=== PATIENT | female | born 1935 | race Caucasian/White ===

== ENCOUNTER 2021-07-21 10:08 | Inpatient (IN) | payer MEDICARE, OTHER ==
[2021-07-21 14:36] VITALS: BMI 24.1
[2021-07-21] MEDS ORDERED: Acetaminophen 500 MG TAB PO PRN (15:17)
[2021-07-21] MEDS ORDERED: Morphine 2 MG/ML VIAL SLOW IVP PRN (15:43)
[2021-07-21 18:45] LABS: Troponin I 0.042 ng/mL (< 0.028)
[2021-07-21] MEDS ORDERED: Melatonin 3 MG TAB PO PRN (20:30)
[2021-07-21 21:19] LABS: Lactic Acid 2.2 mmol/L (0.5-2.2)
[2021-07-22 04:52] LABS: Lactic Acid 1.4 mmol/L (0.5-2.2)
[2021-07-22 05:06] LABS: ALT (SGPT) 179 U/L (8-55); AST (SGOT) 148 U/L (5-34); Albumin 2.8 g/dL (3.4-4.8); Alkaline Phosphatase 122 U/L (40-110); Anion Gap 12 mmol/L (10-20); BUN (Urea Nitrogen) 42 mg/dL (9.8-20.1); Bilirubin, Total 0.5 mg/dL (0.2-1.2); Calc. Creatinine Clearance 20 mL/min (70-130); Calcium 7.5 mg/dL (7.8-10.44); Carbon Dioxide 19 mmol/L (23-31); Chloride 110 mmol/L (98-107); Globulin 2.2 g/dL (2.4-3.5); Glucose 77 mg/dL (83-110); Magnesium 1.7 mg/dL (1.6-2.6); Sodium 137 mmol/L (136-145)
[2021-07-22 05:41] LABS: Hemoglobin 8.5 g/dL (12.0-16.0); MDiff Complete? YES; Mean Corpuscular HGB CONC 31.1 g/dL (32.0-36.0); Mean Corpuscular Hemoglobin 27.9 pg (27.0-31.0); Mean Corpuscular Volume 89.8 fL (78.0-98.0); Mean Platelet Volume 7.6 fL (7.4-10.4); Platelet Count 149 thou/uL (130-400); Red Blood Cell (RBC) Count 3.03 mill/uL (4.20-5.40); White Blood Cell (WBC) Count 26.4 thou/uL (4.8-10.8)
[2021-07-22 05:42] LABS: Band 46 % (5-11); Lymphocytes 3 % (21-51); Monocytes 6 % (0-10); Neutrophil 45 % (42-75); Platelet Morphology Comment Appears Adequate; RBC Morphology Normal
[2021-07-22] MEDS: Levothyroxine Sodium 100 MCG TAB PO SCH (06:40)
[2021-07-22] MEDS ORDERED: Potassium Chloride 20 MEQ TAB PO SCH (08:00)
[2021-07-22] MEDS: cefTRIAXone\\ROCEPHIN 1 GM in Sodium Chloride 0.9% 100 ML IVPB SCH (09:07)
[2021-07-22] MEDS: Aspirin 81 mg Enteric Coated Tablet PO SCH (09:08)
[2021-07-22] MEDS: Losartan 25 MG TAB PO SCH (09:09)
[2021-07-22] MEDS: Ferrous Sulfate 325 MG TAB PO SCH (09:09)
[2021-07-22] MEDS: Enoxaparin Sodium 30 MG/0.3 ML SYRINGE SC SCH (09:09)
[2021-07-22] MEDS: Cholecalciferol 1,000 UNITS (25 MCG) TAB PO SCH (09:09)
[2021-07-22] MEDS: Amlodipine 10 MG TAB PO SCH (09:21)
[2021-07-23 05:32] LABS: Band 15 % (5-11); Eosinophils 2 % (0-10); Hemoglobin 8.2 g/dL (12.0-16.0); Lymphocytes 5 % (21-51); MDiff Complete? YES; Mean Corpuscular HGB CONC 31.8 g/dL (32.0-36.0); Mean Corpuscular Hemoglobin 28.4 pg (27.0-31.0); Mean Corpuscular Volume 89.4 fL (78.0-98.0); Metamyelocyte 1 % (0-0); Monocytes 1 % (0-10); Neutrophil 76 % (42-75); Platelet Count 140 thou/uL (130-400); Platelet Morphology Comment Appears Adequate; RBC Morphology Normal; Red Blood Cell (RBC) Count 2.88 mill/uL (4.20-5.40); White Blood Cell (WBC) Count 24.4 thou/uL (4.8-10.8)
[2021-07-23 05:42] LABS: ALT (SGPT) 108 U/L (8-55); AST (SGOT) 45 U/L (5-34); Albumin 2.8 g/dL (3.4-4.8); Alkaline Phosphatase 121 U/L (40-110); Anion Gap 12 mmol/L (10-20); BUN (Urea Nitrogen) 41 mg/dL (9.8-20.1); Bilirubin, Total 0.5 mg/dL (0.2-1.2); Calc. Creatinine Clearance 27 mL/min (70-130); Calcium 7.9 mg/dL (7.8-10.44); Carbon Dioxide 19 mmol/L (23-31); Chloride 112 mmol/L (98-107); Globulin 2.3 g/dL (2.4-3.5); Glucose 74 mg/dL (83-110); Potassium 3.5 mmol/L (3.5-5.1); Protein, Total 5.1 g/dL (5.8-8.1); Sodium 139 mmol/L (136-145)
[2021-07-23] MEDS: Levothyroxine Sodium 100 MCG TAB PO SCH (06:25)
[2021-07-23] MEDS: Ferrous Sulfate 325 MG TAB PO SCH (09:02)
[2021-07-23] MEDS: Amlodipine 10 MG TAB PO SCH (09:02)
[2021-07-23] MEDS: Aspirin 81 mg Enteric Coated Tablet PO SCH (09:02)
[2021-07-23] MEDS: Cholecalciferol 1,000 UNITS (25 MCG) TAB PO SCH (09:02)
[2021-07-23] MEDS: Enoxaparin Sodium 30 MG/0.3 ML SYRINGE SC SCH (09:03)
[2021-07-23] MEDS: Losartan 25 MG TAB PO SCH (09:03)
[2021-07-23] MEDS: cefTRIAXone\\ROCEPHIN 1 GM in Sodium Chloride 0.9% 100 ML IVPB SCH (12:47)
[2021-07-24] MEDS ORDERED: hydrALAZINE 20 MG/ML VIAL SLOW IVP PRN ×2 (00:09→09:05)
[2021-07-24] MEDS: Levothyroxine Sodium 100 MCG TAB PO SCH (06:27)
[2021-07-24] MEDS: cefTRIAXone\\ROCEPHIN 1 GM in Sodium Chloride 0.9% 100 ML IVPB SCH (08:59)
[2021-07-24] MEDS: Cholecalciferol 1,000 UNITS (25 MCG) TAB PO SCH (09:00)
[2021-07-24] MEDS: Aspirin 81 mg Enteric Coated Tablet PO SCH (09:00)
[2021-07-24] MEDS: Ferrous Sulfate 325 MG TAB PO SCH (09:00)
[2021-07-24] MEDS: Amlodipine 10 MG TAB PO SCH (09:00)
[2021-07-24] MEDS ORDERED: Hydrochlorothiazide 25 MG TAB PO SCH (09:00)
[2021-07-24] MEDS: Losartan 25 MG TAB PO SCH (09:01)
[2021-07-24 10:19] LABS: Hemoglobin 9.8 g/dL (12.0-16.0); Mean Corpuscular HGB CONC 30.7 g/dL (32.0-36.0); Mean Corpuscular Hemoglobin 27.4 pg (27.0-31.0); Mean Corpuscular Volume 89.3 fL (78.0-98.0); Platelet Count 177 thou/uL (130-400); RBC Distribution Width 13.7 % (11.5-14.5); Red Blood Cell (RBC) Count 3.57 mill/uL (4.20-5.40)
[2021-07-24] MEDS ORDERED: Losartan 25 MG TAB PO SCH (10:30)
[2021-07-24 10:36] LABS: ALT (SGPT) 73 U/L (8-55); AST (SGOT) 19 U/L (5-34); Albumin 3.3 g/dL (3.4-4.8); Alkaline Phosphatase 184 U/L (40-110); Anion Gap 15 mmol/L (10-20); BUN (Urea Nitrogen) 29 mg/dL (9.8-20.1); Bilirubin, Total 0.5 mg/dL (0.2-1.2); Calc. Creatinine Clearance 33 mL/min (70-130); Calcium 8.9 mg/dL (7.8-10.44); Carbon Dioxide 19 mmol/L (23-31); Chloride 113 mmol/L (98-107); Globulin 2.9 g/dL (2.4-3.5); Glucose 173 mg/dL (83-110); Potassium 3.8 mmol/L (3.5-5.1); Protein, Total 6.2 g/dL (5.8-8.1); Sodium 143 mmol/L (136-145)
[2021-07-24 10:42] LABS: Eosinophils 1 % (0-10); Lymphocytes 5 % (21-51); MDiff Complete? YES; Mean Platelet Volume 8.1 fL (7.4-10.4); Monocytes 3 % (0-10); Neutrophil 89 % (42-75); Platelet Morphology Comment Appears Adequate; White Blood Cell (WBC) Count 21.6 thou/uL (4.8-10.8)
[2021-07-24] MEDS: Enoxaparin Sodium 30 MG/0.3 ML SYRINGE SC SCH (10:44)
[2021-07-25] MEDS ORDERED: Amlodipine 10 MG TAB PO SCH (00:15)
[2021-07-25] MEDS: Amlodipine 10 MG TAB PO SCH ×2 (00:15→08:25)
[2021-07-25] MEDS ORDERED: Ciprofloxacin 500 MG TAB PO SCH ×2 (06:15→20:00)
[2021-07-25] MEDS: Levothyroxine Sodium 100 MCG TAB PO SCH (06:19)
[2021-07-25] MEDS: Ferrous Sulfate 325 MG TAB PO SCH (08:24)
[2021-07-25] MEDS: Cholecalciferol 1,000 UNITS (25 MCG) TAB PO SCH (08:24)
[2021-07-25] MEDS: Aspirin 81 mg Enteric Coated Tablet PO SCH (08:24)
[2021-07-25] MEDS: Enoxaparin Sodium 30 MG/0.3 ML SYRINGE SC SCH (08:25)
[2021-07-25] MEDS ORDERED: Losartan 25 MG TAB PO SCH (09:00)
[2021-07-25 13:45] VITALS: BP 154/68; TEMP 98.9
[2021-07-25] MEDS ORDERED: Sulfameth/Trimethoprim DS 800-160mg TAB PO SCH (14:00)
== END 2021-07-25 13:44 | disposition home or self-care (01) | DRG 872 ==
LOC: 2NO 10:08
PROVIDERS: ADMIT Student in an Organized Health Care Education/Training Program; ATTEND Student in an Organized Health Care Education/Training Program
DX: A41.59 Other Gram-negative sepsis (principal); N12 Tubulo-interstitial nephritis, not specified as acute or chronic; R47.01 Aphasia; N17.9 Acute kidney failure, unspecified; E03.9 Hypothyroidism, unspecified; Z66 Do not resuscitate; E78.5 Hyperlipidemia, unspecified; I73.9 Peripheral vascular disease, unspecified; Z60.2 Problems related to living alone; N32.81 Overactive bladder; E83.42 Hypomagnesemia; E87.6 Hypokalemia; N28.89 Other specified disorders of kidney and ureter; R74.01 Elevation of levels of liver transaminase levels; N36.8 Other specified disorders of urethra; I12.9 Hypertensive chronic kidney disease with stage 1 through stage 4 chronic kidney disease, or unspecified chronic kidney disease; R53.81 Other malaise; N18.9 Chronic kidney disease, unspecified; M81.0 Age-related osteoporosis without current pathological fracture; D50.9 Iron deficiency anemia, unspecified; Z95.828 Presence of other vascular implants and grafts; Z79.82 Long term (current) use of aspirin; Z79.899 Other long term (current) drug therapy; Z79.890 Hormone replacement therapy; Z98.84 Bariatric surgery status; Z90.49 Acquired absence of other specified parts of digestive tract; Z90.710 Acquired absence of both cervix and uterus; Z80.6 Family history of leukemia
CPT/HCPCS: 36415; 80053; 82550; 83605; 83735; 85025; 93005; 93010; J0360; J0696; J1650; J3490